=== PATIENT | female | born 2000 | race Caucasian/White ===

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

== ENCOUNTER 2020-03-31 23:35 | Emergency (ER) | payer OTHER ==
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
[2020-03-31] MEDS ORDERED: IBUPROFEN 400 MG TABLET (FP) PO ONE ×2 (23:42→23:49)
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
[2020-03-31 23:44] VITALS: BP 108/70; PULSE 112; TEMP 98.8; BMI 17.9
--- NOTE | 2020-03-31 23:48 | PDOC ---
*Physical Exam - Vital Signs Last Vital Signs Temp Pulse Resp BP Pulse Ox 98.8 F 112 H 18 108/70 99 03/31/20 23:41 03/31/20 23:41 03/31/20 23:41 03/31/20 23:41 03/31/20 23:41 Medical Decision Making - Medical Decision Making 03/31/20 23:48 Patient seen by the advanced practice provider under my supervision. Ancillary testing reviewed as necessary. I agree with plan as outlined by the advanced practice provider. Discharge - Discharge Information Problems reviewed: Yes Clinical Impression/Diagnosis: Injury of right foot Qualifiers: Encounter type: initial encounter Qualified Code(s): S99.921A - Unspecified injury of right foot, initial encounter Foot fracture, right Qualifiers: Encounter type: initial encounter Fracture type: closed Qualified Code(s): S92.901A - Unspecified fracture of right foot, initial encounter for closed fracture Condition: Stable Disposition: HOME - Follow up/Referral Referrals: Arvin Diaz DO [Staff Physician] - Call tomorrow - Patient Discharge Instructions Patient Printed Discharge Instructions: Foot Fracture Additional Instructions: Apply ice to the area for 24 to 48 hours. You may take ibuprofen every 6 hours as needed for pain. Elevate your leg and keep the foot in splint. Use crutches that you have for walking. A referral was given to you for orthopedics please call them tomorrow morning for an appointment. Return to the emergency room for any worsening symptoms - Post Discharge Activity Work/Back to School Note: Back to Work
== END 2020-04-01 00:33 | disposition home or self-care (01) ==
LOC: JER 23:35
DX: S99.921A Unspecified injury of right foot, initial encounter (principal)
CPT/HCPCS: 73610-TC-RT-FY; 73630-TC-RT-FY; 99284-25

== ENCOUNTER 2021-07-18 12:20 | Emergency (ER) | payer OTHER ==
[2021-07-18 12:45] VITALS: BMI 19.0
[2021-07-18] MEDS ORDERED: ACETAMINOPHEN 500 MG TABLET (FP) PO ONE (14:46)
[2021-07-18] MEDS ORDERED: ACETAMINOPHEN 500 MG TABLET (FP) ONE (15:54)
[2021-07-18 17:58] LABS: BASO % 0.5 % (0-2.0); EOS % 2.3 % (0-4.5); HEMATOCRIT 36.6 % (32.4-45.2); HEMOGLOBIN 12.6 GM/dL (10.7-15.3); LYMPH % 22.2 % (8-40); MCH 31.3 pg (25.7-33.7); MCHC 34.5 g/dl (32.0-36.0); MEAN CELL VOLUME 90.7 fl (80-96); MEAN PLT VOLUME 7.9 fl (7.5-11.1); MONO % 10.3 % (3.8-10.2); NEUT % 64.7 % (42.8-82.8); PLATELET COUNT 313 10^3/uL (134-434); RBC 4.03 M/mm3 (3.60-5.2); RDW 14.2 % (11.6-15.6); WHITE BLOOD COUNT 6.4 K/mm3 (4.0-10.0)
[2021-07-18 18:07] LABS: CALCIUM 8.7 mg/dL (8.5-10.1); MAGNESIUM 1.5 mg/dL (1.8-2.4)
[2021-07-18 18:09] LABS: ALBUMIN 3.5 g/dl (3.4-5.0); BLOOD UREA NITROGEN 11.3 mg/dL (7-18); PHOSPHOROUS 3.5 mg/dL (2.5-4.9)
[2021-07-18 18:12] LABS: BILIRUBIN,TOTAL 0.5 mg/dL (0.2-1); CREATININE 0.6 mg/dL (0.55-1.3); TOT PROT 7.5 g/dl (6.4-8.2)
[2021-07-19 09:56] VITALS: BP 109/58; PULSE 59; TEMP 97.9
== END 2021-07-19 10:04 | disposition home or self-care (01) ==
LOC: JER 12:20 → JERFT 12:20 → JER 07-19 10:04
DX: R45.851 Suicidal ideations (principal); F10.929 Alcohol use, unspecified with intoxication, unspecified; W19.XXXA Unspecified fall, initial encounter; Y92.9 Unspecified place or not applicable
CPT/HCPCS: 36415; 70450-TC; 70488-TC; 72100-TC-FY; 72220-TC-FY; 73590-TC-LT-FY; 80053; 80307; 83735; 84100; 84443; 84703; 85025; 99285-25; Q9967